=== PATIENT | female | born 1985 ===

== ENCOUNTER 2016-06-24 14:48 | Emergency (ER) | payer OTHER ==
[2016-06-24 16:07] VITALS: BP 100/69
--- NOTE | 2016-06-24 16:27 | UC ---
Skin Complaint HPI - HPI Summary HPI Summary: 30 year old female with complaints of an abscess on left upper thigh. She reports it drained and is improving but now she is having some painful lymph nodes just above the site of the resolving abscess. She denies fever, chills, or pain. Hx of MRSA She is nursing her 8 month old baby on demand - History of Current Complaint Chief Complaint: UCSkin Time Seen by Provider: 06/24/16 16:05 Stated Complaint: SKIN COMPLAINT (THIGH) Hx Obtained From: Patient Hx Last Menstrual Period: 2 weeks ago ?: No Onset/Duration: Gradual Onset, Lasting Days - 2, Still Present Onset Severity: Mild Current Severity: Mild Location: Discrete - left upper thigh Character: Swelling, Redness, Raised, Painful Aggravating: Touch Alleviating: Nothing Associated Signs & Symptoms: Positive: Drainage - abscess drained 4 days ago and is improving, Tenderness. Negative: Nausea, Vomiting, Numbness, Difficulty Breathing, Fever, Chills, Cough, Chest Pain, Hoarseness, Throat Tightening, Rash , Syncope, Bruising, Red Streaks, Joint Swelling - Allergy/Home Medications Allergies/Adverse Reactions: Allergies Allergy/AdvReac Type Severity Reaction Status Date / Time Latex Allergy Mild Rash Verified 06/24/16 15:59 Home Medications: Home Medications Ibuprofen TAB* [Motrin TAB* 600 MG] 600 mg PO Q6H PRN 06/24/16 [History Confirmed 06/24/16] Review of Systems Constitutional: Negative Skin: Other - abscess Eyes: Negative ENT: Negative Respiratory: Negative Cardiovascular: Negative Gastrointestinal: Negative Genitourinary: Negative Motor: Negative Neurovascular: Negative Musculoskeletal: Negative Neurological: Negative Psychological: Negative All Other Systems Reviewed And Are Negative: Yes PMH/Surg Hx/FS Hx/Imm Hx Previously Healthy: Yes Endocrine History Of: Denies: Diabetes Cardiovascular History Of: Denies: Hypertension Respiratory History Of: Denies: Asthma - Surgical History Surgical History: Yes Surgery Procedure, Year, and Place: left eye surgery @ age 3 - Family History Known Family History: Negative: Hypertension, Diabetes - Social History Occupation: Unemployed Lives: With Family Alcohol Use: None Substance Use Type: None Smoking Status (MU): Never Smoked Tobacco Physical Exam Triage Information Reviewed: Yes Appearance: Well-Appearing, No Pain Distress, Well-Nourished Vital Signs: Initial Vital Signs Temp 98.1 F 06/24/16 16:00 Pulse 90 06/24/16 16:00 Resp 16 06/24/16 16:00 BP 100/69 06/24/16 16:00 Pulse Ox 99 06/24/16 16:00 Vital Signs Reviewed: Yes Eyes: Positive: Conjunctiva Clear. Negative: Discharge ENT: Positive: Hearing grossly normal. Negative: Nasal congestion Neck: Positive: Supple, Nontender Respiratory: Positive: Lungs clear, Normal breath sounds Cardiovascular: Positive: RRR, No Murmur Musculoskeletal: Positive: Strength Intact, ROM Intact Neurological: Positive: Alert, Muscle Tone Normal Psychological: Positive: Age Appropriate Behavior - pleasant and cooperative Skin: Positive: Other - abscess on left upper thigh resolving. There is no area of fluctuance. Mild erythema. no warmth, no tenderness to touch, There is a very firm area distal to resolving abscess also nontender. Enlarged tender inguinal lymph nodes noted. Negative: rashes Course/Dx - Course Course Of Treatment: Education about antibiotic use and nursing. Warm compresses to resolving abscess. Follow up plan established - Differential Diagnoses - Skin Complaint Differential Diagnoses: Abscess, Cellulitis - Diagnoses Provider Diagnoses: Resolving abscess left upper thigh. Lymph adenopathy left inguinal. Hx MRSA Discharge - Discharge Plan Condition: Stable Disposition: HOME Prescriptions: Sulfamethox/Trimethoprim DS* [Bactrim DS 800/160 TAB*] 1 tab PO BID #14 tab Patient Education Materials: MRSA (Methicillin Resistant Staphylococcus Aureus ) (ED), Lymphadenopathy (ED) Referrals: Ashly Centeno PA [Primary Care Provider] - 5 Days Additional Instructions: Follow up with your primary care Use warm compresses to the area every 2 - 4 hours for the next several days
== END 2016-06-24 16:45 | disposition home or self-care (01) ==
LOC: UCCORT 14:48
DX: L02.416 Cutaneous abscess of left lower limb (principal); R59.0 Localized enlarged lymph nodes; Z86.14 Personal history of Methicillin resistant Staphylococcus aureus infection
CPT/HCPCS: 99202; G0463